=== PATIENT | male | born 1975 | race Caucasian/White ===

== ENCOUNTER 2016-10-08 06:58 | Emergency (ER) | payer OTHER | END 2016-10-08 11:42 | disposition home or self-care (01) | LOC: ER 06:58 | DX: J06.9 Acute upper respiratory infection, unspecified (principal); J32.9 Chronic sinusitis, unspecified; R53.1 Weakness; F17.210 Nicotine dependence, cigarettes, uncomplicated | CPT/HCPCS: 36415; 87502; 87651; 96361; 96374; J1885; Q9967 ==

== ENCOUNTER 2017-01-10 21:07 | Emergency (ER) | payer OTHER | END 2017-01-11 03:14 | disposition home or self-care (01) | LOC: ER 21:07 | DX: T42.6X1A Poisoning by other antiepileptic and sedative-hypnotic drugs, accidental (unintentional), initial encounter (principal); E11.9 Type 2 diabetes mellitus without complications; F17.210 Nicotine dependence, cigarettes, uncomplicated; Z79.84 Long term (current) use of oral hypoglycemic drugs; Z79.899 Other long term (current) drug therapy | CPT/HCPCS: 36415; 80307; 96361; 96374; G0480 ==